=== PATIENT | male | born 1990 | race Two or more races ===

== ENCOUNTER → 2021-01-22 | Emergency (ER) | payer OTHER ==
[~2021-01-22] VITALS: Ht 177.8 cm; Wt 90.7 kg
[~2021-01-22] MED LIST: IVERMECTIN3 MG PO
== END | disposition home or self-care (01) ==
LOC: ER 10:18
DX: U07.1 COVID-19 (principal)

== ENCOUNTER 2021-01-28 09:00 | Outpatient (CLI) | payer OTHER | END 2021-01-28 11:45 | disposition home or self-care (01) | LOC: ASH CLINIC 09:00 | PROVIDERS: ATTEND General Practice | DX: Z23 Encounter for immunization (principal); U07.1 COVID-19 ==